=== PATIENT | male | born 1935 | race Caucasian/White ===

== ENCOUNTER 2018-01-09 05:11 | Emergency (ER) | payer OTHER ==
[~2018-01-09 05:11] MED LIST: ATEN-1 PO; ATEN-65 PO; BENZ100C4 PO; CEP500 PO; FISH OIL1 CAP PO; HYDR12.561 PO; HYDR473S4 PO; MULT-820 PO; PRE20 PO; VITA15CR2 TP; [UNRECOGNIZED DRUG - CODE] PO
--- NOTE | 2018-01-09 05:21 | ER Report ---
History and Physical Time Seen By MD: 05:20 Hx. of Stated Complaint: Pt was awoken from sleep at 0100. Pt had kideny stones three weeks ago and reports this pain is simmilar to that episode. Pt denies chest pain or shortness of breath but does state he recently had diarrhea. HPI/ROS CHIEF COMPLAINT: left abdominal and back pain HISTORY OF PRESENT ILLNESS: This is an 83 year old male. He awoke at about 0100 with left abdomen and back pain. Pain is constant and severe. Nothing makes it worse or better. Had a kidney stone and was in the ER in [place], [place]. Left sided kidney stone that passed. The pain is similar, but did not have urge for bowel then like tonight. Having two small bowel movements since awakening, urge to go, but small production, no blood. Had loose bowel. Feels the urge to urinate, but no pain. No fevers or chills. No nausea or vomiting. REVIEW OF SYSTEMS: Constitutional: As above. Cardiovascular: No chest pain. No palpitations. Respiratory: No cough. No shortness of breath. Musculoskeletal: No extremity pain. Skin: No rashes. Allergies: Coded Allergies: Penicillins (Verified Allergy, Mild, REACTION, 08/22/15) Home Meds Active Scripts Ondansetron (ZOFRAN ODT) 4 Mg Tab.rapdis, 4 MG PO Q6H Y for NAUSEA/VOMITING, # 20 TAB.VITALIY 0 Refills Prov:EVERTON OSMAN MD 01/09/18 Ketorolac Tromethamine (KETOROLAC TROMETHAMINE) 10 Mg Tab, 10 MG PO Q6H Y for PAIN, #12 TAB 0 Refills Prov:EVERTON OMSAN MD 01/09/18 Hydrocodone Bit/Acetaminophen (HYDROCODON-ACETAMINOPHEN 5-325) 1 Each Tablet, 1 EACH PO Q4H Y for PAIN, #12 TAB 0 Refills Prov:EVERTON OSMAN MD 01/09/18 Tamsulosin Hcl (FLOMAX) 0.4 Mg Cap.er.24h, 0.4 MG PO QDAY, #14 CAP 0 Refills Prov:EVERTON OSMAN MD 01/09/18 Reported Medications Atenolol (ATENOLOL) 50 Mg Tablet, 0.25 TAB PO QDAY, TAB 01/09/18 Discontinued Reported Medications Atenolol (ATENOLOL) 25 Mg Tablet, 1 TAB PO QDAY, TAB 01/09/18 Atenolol (ATENOLOL) 50 Mg Tablet, 1 TAB PO QDAY, TAB 08/22/15 Flaxseed Oil (Flax Seed) 1,030 Mg Capsule, 1030 MG PO QDAY 07/24/10 Vitamin E ([place]-Isacc E) 15 Gm Cream.gm., 15 GM TP QDAY 07/24/10 [place]-3 Fatty Acids (Fish Oil) 1 Cap Capsule, 1 CAP PO QDAY 07/24/10 Multivitamins (Multivitamin) 1 Tab Tablet, 1 TAB PO 07/24/10 Discontinued Scripts Benzonatate 100 Mg Cap (TESSALON PERLE 100 MG CAP) 100 Mg Capsule, 100 MG PO TID , #15 CAP Prov:KAREN MUKHERJEE Barrera DUMONT 08/22/15 Reviewed Nurses Notes: Yes Hx Smoking: Yes Smoking Status: Former Smoker Hx Substance Use Disorder: No Hx Alcohol Use: Yes (OCC) Constitutional Vital Sign - Last 24 Hours 01/09/18 01/09/18 01/09/18 01/09/18 05:14 05:15 05:17 05:26 Temp 97.5 Pulse 64 Resp 20 B/P (MAP) 167/112 167/112 (130) 181/109 (133) Pulse Ox 97 99 O2 Delivery Room Air 01/09/18 01/09/18 01/09/18 01/09/18 05:27 05:32 05:47 06:00 Pulse 61 63 64 B/P (MAP) 161/92 (115) Pulse Ox 98 98 01/09/18 01/09/18 06:05 06:30 Pulse 60 B/P (MAP) 140/83 (102) Pulse Ox 97 Physical Exam General Appearance: The patient is alert. He is in acute distress because of the pain. Eyes: Pupils are equal, round. No pallor, injection or icterus. ENT: Mucous membranes are moist. Neck: Supple and non tender. Respiratory: Lungs are clear to auscultation. Cardiovascular: Regular rate and rhythm. No murmurs, gallops or rubs. Normal capillary refill. Gastrointestinal: Abdomen is tender, especially on the left side with pain in the left lower back as well. Has guarding but no rebound. Nondistended. No pulsatile masses. Normal active bowel sounds. Has left-sided CVA tenderness. Neurological: Alert and oriented x3. No focal neurologic deficits Skin: Warm and dry. Musculoskeletal: Left lower lumbar area pain, no pain in the midline. DIFFERENTIAL DIAGNOSIS: After history and physical exam, differential diagnosis was considered for abdominal pain including but not limited to diverticulitis, obstruction, colitis, gastroenteritis, kidney stone, AAA and urinary tract infection. Medical Decision Making Data Points Result Diagram: 01/09/1852101/09/18 0522 Laboratory Hematology Test 01/09/18 05:22 Red Blood Count 5.24 M/uL (4.00-5.60) Mean Corpuscular Volume 94.7 fL (80.0-96.0) Mean Corpuscular Hemoglobin 33.8 pg (26.0-33.0) Mean Corpuscular Hemoglobin Concent 35.6 g/dL (32.0-36.0) Red Cell Distribution Width 13.3 % (11.5-14.5) Mean Platelet Volume 8.5 fL (7.2-11.1) Neutrophils (%) (Auto) 43.9 % (39.4-72.5) Lymphocytes (%) (Auto) 37.7 % (17.6-49.6) Monocytes (%) (Auto) 13.9 % (4.1-12.4) Eosinophils (%) (Auto) 2.4 % (0.4-6.7) Basophils (%) (Auto) 2.1 % (0.3-1.4) Nucleated RBC Relative Count (auto) 0.1 /100WBC Neutrophils # (Auto) 2.8 K/uL (2.0-7.4) Lymphocytes # (Auto) 2.4 K/uL (1.3-3.6) Monocytes # (Auto) 0.9 K/uL (0.3-1.0) Eosinophils # (Auto) 0.2 K/uL (0.0-0.5) Basophils # (Auto) 0.1 K/uL (0.0-0.1) Nucleated RBC Absolute Count (auto) 0.00 K/uL Peripheral Blood Smear Yes Y/N Sodium Level 145 mmol/L (137-145) Potassium Level 3.8 mmol/L (3.5-5.0) Chloride Level 107 mmol/L (98-107) Carbon Dioxide Level 27 mmol/L (22-30) Blood Urea Nitrogen 28 mg/dl (9-21) Creatinine 1.10 mg/dl (0.66-1.25) Glomerular Filtration Rate Calc > 60.0 Random Glucose 99 mg/dl (75-110) Lactate 1.7 mmol/L (0.7-2.1) Calcium Level 9.4 mg/dl (8.4-10.2) Total Bilirubin 1.1 mg/dl (0.2-1.3) Aspartate Amino Transf (AST/SGOT) 23 U/L (0-35) Alanine Aminotransferase (ALT/SGPT) 30 U/L (0-56) Alkaline Phosphatase 39 U/L (0-126) C-Reactive Protein < 0.5 mg/dl (<1.0) Total Protein 7.8 g/dl (6.3-8.2) Albumin 4.6 g/dl (3.5-5.0) Amylase Level 108 U/L (0-110) Lipase 366 U/L (23-300) Chemistry Test 01/09/18 05:22 White Blood Count 6.4 k/uL (4.5-11.0) Red Blood Count 5.24 M/uL (4.00-5.60) Hemoglobin 17.7 g/dL (14.0-18.0) Hematocrit 49.7 % (42.0-52.0) Mean Corpuscular Volume 94.7 fL (80.0-96.0) Mean Corpuscular Hemoglobin 33.8 pg (26.0-33.0) Mean Corpuscular Hemoglobin Concent 35.6 g/dL (32.0-36.0) Red Cell Distribution Width 13.3 % (11.5-14.5) Platelet Count 80 K/uL (150-450) Mean Platelet Volume 8.5 fL (7.2-11.1) Neutrophils (%) (Auto) 43.9 % (39.4-72.5) Lymphocytes (%) (Auto) 37.7 % (17.6-49.6) Monocytes (%) (Auto) 13.9 % (4.1-12.4) Eosinophils (%) (Auto) 2.4 % (0.4-6.7) Basophils (%) (Auto) 2.1 % (0.3-1.4) Nucleated RBC Relative Count (auto) 0.1 /100WBC Neutrophils # (Auto) 2.8 K/uL (2.0-7.4) Lymphocytes # (Auto) 2.4 K/uL (1.3-3.6) Monocytes # (Auto) 0.9 K/uL (0.3-1.0) Eosinophils # (Auto) 0.2 K/uL (0.0-0.5) Basophils # (Auto) 0.1 K/uL (0.0-0.1) Nucleated RBC Absolute Count (auto) 0.00 K/uL Peripheral Blood Smear Yes Y/N Glomerular Filtration Rate Calc > 60.0 Lactate 1.7 mmol/L (0.7-2.1) Calcium Level 9.4 mg/dl (8.4-10.2) Total Bilirubin 1.1 mg/dl (0.2-1.3) Aspartate Amino Transf (AST/SGOT) 23 U/L (0-35) Alanine Aminotransferase (ALT/SGPT) 30 U/L (0-56) Alkaline Phosphatase 39 U/L (0-126) C-Reactive Protein < 0.5 mg/dl (<1.0) Total Protein 7.8 g/dl (6.3-8.2) Albumin 4.6 g/dl (3.5-5.0) Amylase Level 108 U/L (0-110) Lipase 366 U/L (23-300) EKG/Imaging Imaging COMPUTED TOMOGRAPHY ABDOMEN AND PELVIS WITH INTRAVENOUS CONTRAST DATE OF EXAM: 01/09/2018 5:33 AM INDICATION: Left-sided abdominal pain. COMPARISON: Abdomen radiographs 08/19/2013. TECHNIQUE: Contrast enhanced abdomen and pelvis CT performed during the injection of 75 ml of Isovue 370. Sagittal and coronal reconstructions were performed. One of the following dose optimization techniques was utilized in the performance of this exam: Automated exposure control; adjustment of the mA and/or kV according to the patient's size; or use of an iterative reconstruction technique. Specific details can be referenced in the facility's radiology CT exam operational policy. FINDINGS: Lung bases: Calcified granuloma in the right lung base. Mild scarring/ atelectasis. Liver and hepatic vasculature: Multiple small hypoattenuating lesions in the left lobe likely represent cysts. No suspicious lesion or acute abnormality. Gallbladder and bile ducts: Normal. Spleen: Calcified granuloma in in the inferior aspect, otherwise normal.. Pancreas: Normal. Adrenals: Normal. Kidneys, ureters and bladder: 6 mm calculus at the left ureterovesicular junction with associated moderate hydronephrosis/hydroureter and delayed nephrogram. Bilateral renal cysts. Urinary bladder is largely decompressed. Retroperitoneum and aorta: Nonaneurysmal aorta with moderate atherosclerosis. No lymphadenopathy. GI tract, mesentery and peritoneum: Nonacute. Normal appendix. A left inguinal hernia contains fat and a small portion of the sigmoid colon. Prostate and seminal vesicles: Normal. Bones and soft tissues: Left inguinal hernia as above. Smaller fat-containing right inguinal hernia. No suspicious lesion. Remote right rib fractures. IMPRESSION: 1. 6 mm calculus at the left ureterovesicular junction with associated moderate hydronephrosis/hydroureter and delayed nephrogram. 2. Left inguinal hernia contains fat and a small portion of the sigmoid colon with no associated acute complication. Report Dictated By: João Andrade MD at 01/09/2018 6:50 AM ED Course/Re-evaluation Clinical Indication for ER IV: Hydration, IV Access ED Course Some improvement with IV Morphine and IV Toradol. Later gave a second dose of Morphine 2mg IV. CT scan shows 6mm stone at UVJ. No other pathology. Reviewed with patient. Decision to Disposition Date: Jan 09, 2018 Decision to Disposition Time: 06:59 Depart Departure Latest Vital Signs Vital Signs Date Time Temp Pulse Resp B/P (MAP) Pulse Ox O2 Delivery O2 Flow Rate FiO2 01/09/18 06:30 140/83 (102) 01/09/18 06:05 60 97 01/09/18 05:14 97.5 20 Room Air Impression: Primary Impression: Kidney stone on left side Condition: Improved Disposition: HOME OR SELF-CARE New Scripts Ondansetron (ZOFRAN ODT) 4 Mg Tab.rapdis 4 MG PO Q6H Y for NAUSEA/VOMITING, #20 TAB.VITALIY 0 Refills Prov: EVERTON OSMAN MD 01/09/18 Ketorolac Tromethamine (KETOROLAC TROMETHAMINE) 10 Mg Tab 10 MG PO Q6H Y for PAIN, #12 TAB 0 Refills Prov: EVERTON OSMAN MD 01/09/18 Hydrocodone Bit/Acetaminophen (HYDROCODON-ACETAMINOPHEN 5-325) 1 Each Tablet 1 EACH PO Q4H Y for PAIN, #12 TAB 0 Refills Prov: EVERTON OSMAN MD 01/09/18 Tamsulosin Hcl (FLOMAX) 0.4 Mg Cap.er.24h 0.4 MG PO QDAY, #14 CAP 0 Refills Prov: EVERTON OSMAN MD 01/09/18 Patient Instructions: Kidney Stones (ED) Additional Instructions: Rest and increase fluid intake. For pain you can use: Toradol 10mg, one every 6 hours as needed for pain. Lortab 5/325, take 1-2 every 4 hours as needed for pain. For Nausea: Zofran 4mg, one every 4-6 hours as needed for nausea. To help the stone to pass and to help decrease swelling and pain in the urinary system after the stone passes, we recommend using Flomax 0.4mg one daily for the next couple of weeks. EVERTON OSMAN MD Jan 09, 2018 05:21
[2018-01-09] MEDS ORDERED: ATEN-65 PO (05:26)
[2018-01-09] MEDS ORDERED: NS(*) 0.9% 1000 ML BAG 1,000 ML IV ONE (05:33)
[2018-01-09] MEDS ORDERED: KETOROLAC 30 MG/ML VIAL IVP ONE (05:35)
[2018-01-09] MEDS ORDERED: ONDANSETRON 4 MG/2 ML VIAL IVP ONE (05:35)
[2018-01-09] MEDS ORDERED: MORPHINE 2 MG/ML SYR IVP ONE ×2 (05:35→06:15)
[2018-01-09 05:41] LABS: PLATELET COUNT, AUTOMATED 80 K/uL (150-450)
[2018-01-09] MEDS ORDERED: IOPAMIDOL 76% 100 ML INFUS BTL 100 ML ONE (06:01)
[2018-01-09] MEDS ORDERED: ATEN-1 PO (06:31)
[2018-01-09 07:00] VITALS: BP 131/83
[2018-01-09] MEDS ORDERED: ONDA4TAB PO (07:00)
[2018-01-09] MEDS ORDERED: TAMS0.4C25 PO (07:00)
[2018-01-09] MEDS ORDERED: LOR5/325 PO (07:00)
[2018-01-09] MEDS ORDERED: KET10 PO (07:00)
--- NOTE | 2018-01-09 07:03 | RADIOLOGY IMAGING REPORT ---
[facility]AC[facility] PATIENT NAME: Ivan Haley : 1935 MR: [id number] V: [id number] EXAM DATE: ORDERING PHYSICIAN: EVERTON OSMAN TECHNOLOGIST: Location: [facility] Patient: Ivan Haley : 1935 Visit/Account:[id number] Date of Sevice: 01/09/2018 COMPUTED TOMOGRAPHY ABDOMEN AND PELVIS WITH INTRAVENOUS CONTRAST DATE OF EXAM: 01/09/2018 5:33 AM INDICATION: Left-sided abdominal pain. COMPARISON: Abdomen radiographs 08/19/2013. TECHNIQUE: Contrast enhanced abdomen and pelvis CT performed during the injection of 75 ml of Isovue 370. Sagittal and coronal reconstructions were performed. One of the following dose optimization te chniques was utilized in the performance of this exam: Automated exposure control; adjustment of the mA and/or kV according to the patient's size; or use of an iterative reconstruction technique. Spec [facility] details can be referenced in the facility's radiology CT exam operational policy. FINDINGS: Lung bases: Calcified granuloma in the right lung base. Mild scarring/atelectasis. Liver and hepatic vasculature: Multiple small hypoattenuating lesions in the left lobe likely repres ent cysts. No suspicious lesion or acute abnormality. Gallbladder and bile ducts: Normal. Spleen: Calcified granuloma in in the inferior aspect, otherwise normal.. Pancreas: Normal. Adrenals: Normal. Kidneys, ureters and bladder: 6 mm calculus at the left ureterovesicular junction with associated mo derate hydronephrosis/hydroureter and delayed nephrogram. Bilateral renal cysts. Urinary bladder is largely decompressed. Retroperitoneum and aorta: Nonaneurysmal aorta with moderate atherosclerosis. No lymphadenopathy. GI tract, mesentery and peritoneum: Nonacute. Normal appendix. A left inguinal hernia contains fat and a small portion of the sigmoid colon. Prostate and seminal vesicles: Normal. Bones and soft tissues: Left inguinal hernia as above. Smaller fat-containing right inguinal hernia . No suspicious lesion. Remote right rib fractures. IMPRESSION: 1. 6 mm calculus at the left ureterovesicular junction with associated moderate hydronephrosis/hydro ureter and delayed nephrogram. 2. Left inguinal hernia contains fat and a small portion of the sigmoid colon with no associated acu te complication. Report Dictated By: João Andrade MD at 01/09/2018 6:50 AM Report E-Signed By: João Andrade MD at 01/09/2018 6:59 AM WSN:[id number]
[2018-01-09] MEDS ORDERED: KETOROLAC TROM 10 MG TAB TH PO ONE (07:05)
[2018-01-09] MEDS ORDERED: ONDANSETRON 4 MG ODT TH SL ONE (07:05)
[2018-01-09] MEDS ORDERED: ACET/HYDROC 5/325MG TH ER ONLY 2 TAB/BOTTLE PO ONE (07:05)
[2018-01-09] MEDS ORDERED: TAMSULOSIN HCL 0.4 MG CAP PO ONE (07:05)
== END 2018-01-09 07:26 | disposition home or self-care (01) ==
LOC: ER 05:13
DX: N20.0 Calculus of kidney (principal); Z87.891 Personal history of nicotine dependence
CPT/HCPCS: 74177; 81001; 82150; 83605; 83690; 85025; 86140; 96374; 96375; 96376; 99284; J1885; J2270; J7030; Q9967; S0119; 82040; 82247; 82310; 82374; 82435; 82565; 82947; 84075; 84132; 84155; 84295; 84450; 84460; 84520

== ENCOUNTER 2018-04-28 09:27 | Emergency (ER) | payer OTHER ==
[~2018-04-28 09:27] MED LIST changes: +KET10 PO; +LOR5/325 PO; +ONDA4TAB PO; +TAMS0.4C25 PO
[2018-04-28] MEDS ORDERED: NS(*) 0.9% 1000 ML BAG 1,000 ML IV ONE (09:55)
[2018-04-28] MEDS ORDERED: ONDANSETRON 4 MG/2 ML VIAL IVP ONE (09:55)
[2018-04-28] MEDS ORDERED: KETOROLAC 30 MG/ML VIAL IVP ONE ×2 (09:55→11:00)
[2018-04-28] MEDS ORDERED: fentaNYL CITR 100 MCG/2 ML AMP IVP ONE (10:30)
--- NOTE | 2018-04-28 11:50 | RADIOLOGY IMAGING REPORT ---
[place] [facility] [place] NAME: Ivan Haley : 1935 MR: [id number] V: [id number] EXAM DATE: ORDERING PHYSICIAN: FAM GAONA TECHNOLOGIST: Location: [facility] Patient: Ivan Haley : 1935 Visit/Account:[id number] Date of Sevice: 04/28/2018 ABDOMEN/PELVIS W/O CONTRAST HISTORY: Left flank pain TECHNIQUE: CT abdomen and pelvis without intravenous contrast. Contiguous axial images of the abdom en and pelvis was performed from the lung bases to the symphysis pubis. One of the following dose optimization techniques was utilized in the performance of this exam: Autom ated exposure control; adjustment of the mA and/or kV according to the patient's size; or use of an i terative reconstruction technique. Specific details can be referenced in the facility's radiology C T exam operational policy. CONTRAST: None. COMPARISON: 01/09/2018 FINDINGS: Visualized lung bases: Patient has a pectus deformity of the anterior chest, a congenital variant Hepatobiliary: Subtle lucency segment 2 of liver is likely a cyst and characterized on prior enhance d CT. Spleen: Negative. Adrenals: Negative. Kidneys/: 6 x 4 mm obstructing left UVJ stone is noted with associated left hydroureter and severe left hydronephrosis. Stone is similar in appearance to the prior obstructing stone. Small calcification lower pole right kidney is noted. Benign renal cortical cysts are noted the large st in the right kidney lower pole measures 5.1 x 4.2 cm. The largest in the left kidney is in the low er pole measures 3.1 cm. Pancreas: Negative. GI: No bowel obstruction or focal inflammation. Vessels/spaces/nodes: Atherosclerotic calcifications noted. Bones/soft tissues: Left inguinal hernia with fat in the defect is noted. Degenerative changes are n oted the spine. Small well-circumscribed lucency in the left iliac bone image 105 measures 8 mm and i s stable from prior examination. I am not provided history malignancy. IMPRESSION: 1. 6 x 4 mm obstructing left UVJ stone with associated left hydroureter and severe left-sided hydron ephrosis. This stone is similar in appearance to the prior examination. 2. Numerous other chronic findings detailed above. Report Dictated By: Marty Rasmussen MD at 04/28/2018 11:38 AM Report E-Signed By: Marty Rasmussen MD at 04/28/2018 11:46 AM WSN:[id number]
[2018-04-28] MEDS ORDERED: TAMSULOSIN HCL 0.4 MG CAP PO ONE (11:55)
[2018-04-28 12:30] VITALS: BP 139/74
--- NOTE | 2018-04-28 12:36 | ER Report ---
History and Physical Time Seen By MD: 09:30 Hx. of Stated Complaint: PATIENT REPORTS THAT HE HAS A KIDNEY STONE. HE REPORTS THAT THIS IS HIS 5TH STONE THIS YEAR HPI/ROS 83 y/o male with 4 previous episodes of kidney stones this year, presents to the ED with severe left sided pelvi pain simialr to his previous stones. No fever/chills. No dysuria. No abdominal pain. Remainder of the 14 system rev: Yes Allergies: Coded Allergies: Penicillins (Verified Allergy, Mild, REACTION, 08/22/15) Home Meds Active Scripts Ondansetron (ZOFRAN ODT) 4 Mg Tab.rapdis, 4 MG PO Q6H PRN for NAUSEA/VOMITING, #20 TAB.VITALIY 0 Refills Prov:EVERTON OSMAN MD 01/09/18 Ketorolac Tromethamine (KETOROLAC TROMETHAMINE) 10 Mg Tab, 10 MG PO Q6H PRN for PAIN, #12 TAB 0 Refills Prov:EVERTON OSMAN MD 01/09/18 Hydrocodone Bit/Acetaminophen (HYDROCODON-ACETAMINOPHEN 5-325) 1 Each Tablet, 1 EACH PO Q4H PRN for PAIN, #12 TAB 0 Refills Prov:EVERTON OSMAN MD 01/09/18 Tamsulosin Hcl (FLOMAX) 0.4 Mg Cap.er.24h, 0.4 MG PO QDAY, #14 CAP 0 Refills Prov:EVERTON OSMAN MD 01/09/18 Reported Medications Atenolol (ATENOLOL) 50 Mg Tablet, 0.25 TAB PO QDAY, TAB 01/09/18 Reviewed Nurses Notes: Yes Old Medical Records Reviewed: Yes Hx Smoking: Yes Smoking Status: Former Smoker Hx Substance Use Disorder: No Hx Alcohol Use: Yes (OCC) Constitutional Vital Sign - Last 24 Hours 04/28/18 04/28/18 04/28/18 04/28/18 09:30 09:34 09:57 10:00 Pulse 57 63 Resp 24 B/P (MAP) 172/102 (125) 152/88 (109) Pulse Ox 94 98 O2 Delivery Room Air 04/28/18 04/28/18 04/28/18 04/28/18 10:27 10:30 10:57 11:00 Pulse 58 64 B/P (MAP) 128/71 (90) 133/73 (93) Pulse Ox 95 97 04/28/18 04/28/18 04/28/18 04/28/18 11:05 11:30 11:35 12:00 Pulse 60 65 B/P (MAP) 122/78 (93) 120/73 (89) Pulse Ox 96 92 04/28/18 04/28/18 04/28/18 04/28/18 12:05 12:30 12:35 12:41 Pulse ? B/P (MAP) 139/74 (95) Physical Exam General Appearance: The patient is alert, has no immediate need for airway protection and no current signs of toxicity. Eyes: Pupils equal and round no injection. Respiratory: Chest is non tender, lungs are clear to auscultation. Cardiac: regular rate and rhythm Gastrointestinal: Abdomen is soft and non tender, no masses, bowel sounds normal. Extremities have full range of motion and are non tender. Skin: No rashes or lesions. DIFFERENTIAL DIAGNOSIS: After history and physical exam differential diagnosis was considered for abdominal pain including but not limited to appendicitis, cholecystitis, gastritis, kidney stone, and urinary tract infection. Medical Decision Making Data Points Laboratory Hematology Test 04/28/18 09:33 Urine Color Yellow Urine Clarity Slightly-cloudy Urine pH 5.0 pH (4.8-9.5) Urine Specific [place] 1.027 Urine Protein 100 mg/dL (NEGATIVE) Urine Glucose (UA) Negative mg/dL (NEGATIVE) Urine Ketones Negative mg/dL (NEGATIVE) Urine Blood Large (NEGATIVE) Urine Nitrite Negative (NEGATIVE) Urine Bilirubin Negative (NEGATIVE) Urine Urobilinogen Negative mg/dL (0.2-1.9) Urine Leukocyte Esterase Negative (NEGATIVE) Urine RBC 299 /HPF (0-2/HPF) Urine WBC 6 /HPF (0-5/HPF) Urine Squamous Epithelial Cells None /LPF (</=FEW) Urine Calcium Oxalate Crystals Few /HPF (NONE) Urine Bacteria Negative /HPF (NONE-FEW) Urine Mucus Few /HPF (NONE-FEW) Urine Yeast (Budding) Few /HPF Chemistry Test 04/28/18 09:33 Urine Color Yellow Urine Clarity Slightly-cloudy Urine pH 5.0 pH (4.8-9.5) Urine Specific [place] 1.027 Urine Protein 100 mg/dL (NEGATIVE) Urine Glucose (UA) Negative mg/dL (NEGATIVE) Urine Ketones Negative mg/dL (NEGATIVE) Urine Blood Large (NEGATIVE) Urine Nitrite Negative (NEGATIVE) Urine Bilirubin Negative (NEGATIVE) Urine Urobilinogen Negative mg/dL (0.2-1.9) Urine Leukocyte Esterase Negative (NEGATIVE) Urine RBC 299 /HPF (0-2/HPF) Urine WBC 6 /HPF (0-5/HPF) Urine Squamous Epithelial Cells None /LPF (</=FEW) Urine Calcium Oxalate Crystals Few /HPF (NONE) Urine Bacteria Negative /HPF (NONE-FEW) Urine Mucus Few /HPF (NONE-FEW) Urine Yeast (Budding) Few /HPF Urinalysis Test 04/28/18 09:33 Urine Color Yellow Urine Clarity Slightly-cloudy Urine pH 5.0 pH (4.8-9.5) Urine Specific [place] 1.027 Urine Protein 100 mg/dL (NEGATIVE) Urine Glucose (UA) Negative mg/dL (NEGATIVE) Urine Ketones Negative mg/dL (NEGATIVE) Urine Blood Large (NEGATIVE) Urine Nitrite Negative (NEGATIVE) Urine Bilirubin Negative (NEGATIVE) Urine Urobilinogen Negative mg/dL (0.2-1.9) Urine Leukocyte Esterase Negative (NEGATIVE) Urine RBC 299 /HPF (0-2/HPF) Urine WBC 6 /HPF (0-5/HPF) Urine Squamous Epithelial Cells None /LPF (</=FEW) Urine Calcium Oxalate Crystals Few /HPF (NONE) Urine Bacteria Negative /HPF (NONE-FEW) Urine Mucus Few /HPF (NONE-FEW) Urine Yeast (Budding) Few /HPF ED Course/Re-evaluation ED Course CT scan consistent with a 6 mm left-sided stone at the UVJ. Patient does not want narcotic pain medicine. He has received 2 doses of Toradol as well as Flomax and Zofran. His pain is improved. No Evidence of infection. He will try to catch the stone with a strainer and follow-up with a urologist. Decision to Disposition Date: Apr 28, 2018 Decision to Disposition Time: 12:30 Depart Departure Latest Vital Signs Vital Signs Date Time Temp Pulse Resp B/P (MAP) Pulse Ox O2 Delivery O2 Flow Rate FiO2 04/28/18 12:41 ??? 04/28/18 12:30 139/74 (95) 04/28/18 11:35 92 04/28/18 09:30 24 Room Air Impression: Primary Impression: Kidney stone on left side Condition: Improved Disposition: HOME OR SELF-CARE Referrals: JANA AUGUSTE MD Departure Forms: Medications Reconciliation, Patient Portal Information, ER Transition Record Patient Instructions: Kidney Stones (DC) FAM GAONA MD Apr 28, 2018 12:36
[2018-04-28] MEDS ORDERED: KETOROLAC TROM 10 MG TAB TH PO ONE (12:40)
== END 2018-04-28 12:44 | disposition home or self-care (01) ==
LOC: ER 10:18
DX: N13.2 Hydronephrosis with renal and ureteral calculous obstruction (principal); N13.4 Hydroureter
CPT/HCPCS: 74176; 81001; 96361; 96374; 96375; 96376; 99284; J1885; J2405; J7030

== ENCOUNTER 2018-08-25 01:01 | Observation (INO) | payer OTHER ==
[~2018-08-25] VITALS: Ht 172.7 cm; Wt 77.6 kg
[2018-08-25] VITALS (14 sets, daily range): BP systolic 125–174; BP diastolic 71–92
[~2018-08-25 01:01] MED LIST changes: +VIT1CAPS9 PO
[2018-08-25] MEDS ORDERED: LEVOFLOXACIN/D5W*500 MG/100 ML 100 ML IVPB ONE (06:00)
[2018-08-25] MEDS ORDERED: NORMOSOL R SOLN(*) 1000 ML BAG 1,000 ML IV PRN ×2 (06:00→11:15)
[2018-08-25] MEDS ORDERED: fentaNYL CITR 100 MCG/2 ML AMP ONE ×2 (06:58→09:07)
[2018-08-25] MEDS ORDERED: ETOMIDATE 20 MG/10 ML VIAL ONE (06:58)
[2018-08-25] MEDS ORDERED: PROPOFOL EMUL(*) 10MG/ML 20 ML 20 ML ONE (06:58)
[2018-08-25] MEDS ORDERED: ONDANSETRON 4 MG/2 ML VIAL ONE (06:58)
[2018-08-25] MEDS ORDERED: LIDOCAINE MPF 1% 5 ML VIAL ONE (06:58)
[2018-08-25] MEDS ORDERED: KETAMINE HCL-NS 50 MG/5 ML SYR ONE (06:58)
[2018-08-25] MEDS ORDERED: LIDOCAINE 2% IV 100 MG/5ML SYR ONE (07:00)
[2018-08-25 07:52] LABS: PLATELET COUNT, AUTOMATED 58 K/uL (150-450)
[2018-08-25] MEDS ORDERED: IOPAMIDOL-200 50 ML VIAL IS ONE (08:12)
[2018-08-25] MEDS ORDERED: BELLADONNA ALK/OPIUM 60MG SUPP PR ONE (08:12)
[2018-08-25] MEDS ORDERED: HYDROmorphone HCL 2 MG/ML SDV IVP PRN (09:10)
[2018-08-25] MEDS ORDERED: APAP/HYDROCODONE 325/5 TAB PO PRN (09:10)
[2018-08-25] MEDS ORDERED: NALOXONE HCL 0.4 MG/ML VIAL IVP PRN (09:10)
[2018-08-25] MEDS ORDERED: ONDANSETRON 4 MG/2 ML VIAL IVP PRN (09:10)
[2018-08-25] MEDS ORDERED: ACETAMINOPHEN 325 MG TAB PO PRN (09:10)
[2018-08-25] MEDS ORDERED: TAMSULOSIN HCL 0.4 MG CAP PO PRN (09:15)
--- NOTE | 2018-08-25 09:32 | OPERATIVE REPORT 1 ---
EVENT DATE: August 25, 2018 SURGEON: Clinton Dumont MD ANESTHESIOLOGIST: Aroldo Estrada MD ANESTHESIA: General. INFORMATION TECHNOLOGY COORDINATOR: None. PREOPERATIVE DIAGNOSIS Distal left ureteral calculus. POSTOPERATIVE DIAGNOSIS Distal left ureteral calculus. PROCEDURE PERFORMED Left ureteroscopic laser lithotripsy with stone extraction and stent placement. DESCRIPTION OF PROCEDURE The patient was brought to the operating room and after the adequate induction of general anesthesia, he was placed in the relaxed dorsal lithotomy position. The genitalia were scrubbed, prepped and draped in a sterile fashion and the bladder examined with a rigid cystoscope. There was some prostatic hypertrophy observed but no intravesical abnormalities noted. I was able to place a sensor wire into the left ureteral orifice and position it in the left renal pelvis. I had to dilate the distal ureter with the 12-Kyrgyz ureteral dilation system and after this the scope could be passed over the wire and into the distal ureter, where the stone was visualized. I used a 200 micron laser fiber to thoroughly fragment the stone into innumerable pieces. Several of the larger pieces were withdrawn with the Galileo basket and sent for stone analysis. Once accomplished, I was able to place a 24 cm 6-Kyr[place]z double-J stent over the wire and its position was confirmed cystoscopically and fluoroscopically. His bladder was emptied with a Aguilar catheter. A B and O suppository was administered. He was aroused from anesthesia and then transported to PACU in stable condition. [facility]
[2018-08-25] MEDS ORDERED: PROMETHAZINE 25 MG/ML 1 ML AMP ONE (09:42)
--- NOTE | 2018-08-25 10:04 | RADIOLOGY IMAGING REPORT ---
FAC[place] [facility] [place] NAME: Ivan Haley : 1935 MR: [id number] V: [id number] EXAM DATE: ORDERING PHYSICIAN: JANA AUGUSTE TECHNOLOGIST: Location: [facility] [place] Patient: Ivan Haley : 1935 Visit/Account:[id number] Date of Sevice: 08/25/2018 Exam type: C-ARM FLUORO 1 HR History: HEMATURIA Comparison: CT abdomen pelvis April 28, 2018. Findings: Two intraoperative C arm spot views over the abdomen and pelvis were submitted. The fluoroscopy time was four seconds. The fluoroscopy dose was 2.28 mGY. Images demonstrate cystoscope projecting over the lower pelvis. Final image demonstrates a left ureteral stent. The proximal pigtail projects ov er the upper pole the left kidney IMPRESSION: 1. As above Report Dictated By: Alecia Zarco MD at 08/25/2018 9:57 AM Report E-Signed By: Alecia Zarco MD at 08/25/2018 9:59 AM WSN:[id number]
[2018-08-25] MEDS ORDERED: BELLADONNA ALK/OPIUM 60MG SUPP PR PRN (10:05)
[2018-08-25] MEDS: NS(*) 0.9% 1000 ML BAG 1,000 ML IV PRN ×2 (10:41→18:31)
[2018-08-25] MEDS ORDERED: MIDAZOLAM 2 MG/2 ML VIAL IVP PRN (11:15)
[2018-08-25] MEDS ORDERED: FAMOTIDINE 20 MG TAB PO ONE (11:15)
[2018-08-25] MEDS ORDERED: LIDOCAINE/SOD BICARB 8.4% SYR ID ONE (11:15)
[2018-08-25] MEDS: FAMOTIDINE 20 MG TAB PO SCH (20:17)
[2018-08-25] MEDS: DOCUSATE SODIUM 100 MG CAP PO SCH (20:17)
[2018-08-25] MEDS: BETA-CAROTENE(A) & E/MIN TAB PO SCH (20:17)
[2018-08-26 00:41] VITALS: BP 115/61
[2018-08-26] MEDS: NS(*) 0.9% 1000 ML BAG 1,000 ML IV PRN (02:48)
[2018-08-26 07:26] VITALS: BP 128/69
[2018-08-26 08:50] VITALS: Ht 172.7 cm; Wt 77.6 kg
[2018-08-26] MEDS: DOCUSATE SODIUM 100 MG CAP PO SCH (08:57)
[2018-08-26] MEDS: FAMOTIDINE 20 MG TAB PO SCH (08:57)
[2018-08-26] MEDS: BETA-CAROTENE(A) & E/MIN TAB PO SCH (08:58)
[2018-08-26] MEDS ORDERED: ATENOLOL 25 MG TAB PO SCH (09:00)
--- NOTE | 2018-08-26 09:00 | Urology Discharge Summary ---
Discharge Summary Reason for Hosp/Final Diag: (1) Kidney stone on left side Status: Resolved Departure Weight (Pounds): 171 Result Diagram: 08/25/18 0732 Condition: Improved Discharge: Home Discharge Instructions Home Meds Reported Medications Tamsulosin Hcl (FLOMAX) 0.4 Mg Cap.er.24h, 0.4 MG PO DAILY PRN for KIDNEY STONE PAIN, CAP 08/17/18 Vit C/E/Zn/Coppr/Lutein/Zeaxan (Preservision Areds 2 Softgel) 1 Each Capsule, 1 CAP PO BID 08/17/18 Discontinued Reported Medications Atenolol (ATENOLOL) 50 Mg Tablet, 12.5 MG PO QDAY, TAB 01/09/18 Diet: Regular Activity: As Tolerated Venous Thromboembolism Antithrombotics Is Pt On Any Antithrombotics?: JANA Berman MD Aug 26, 2018 09:00
--- NOTE | 2018-08-26 09:01 | Urology Progress Note ---
Subjective Patient Complains of: Neurological: No: Syncope, Confusion, Weakness, Dizziness, Slurred Speech, Other Gastrointestinal: No Nausea, No Vomiting, No Flatus, No Bowel Movement, No Other Physical Exam Vital Signs Date Time Temp Pulse Resp B/P (MAP) Pulse Ox O2 Delivery O2 Flow Rate FiO2 08/26/18 07:31 92 08/26/18 07:26 98.2 64 18 128/69 (88) Room Air 08/26/18 00:41 1.0 Intake and Output 08/26/18 07:00 Intake Total 3734 ml Output Total 1450 ml Balance 2284 ml Intake Oral 400 ml IV Total 3334 ml Output Urine Total 1450 ml General Appearance: Alert, Awake, No Acute Distress Eyes: PERRLA Cardiovascular: Regular Rate and Rhythm Respiratory: No Respiratory Distress GI: Soft and Non-Tender Result Diagram: 08/25/18 0732 Assessment and Plan Problems: (1) Kidney stone on left side Status: Resolved Condition Patient was found to be thrombocytopenic and had fairly bloody urine in the PACU . He was admitted overnight and this morning his urine has cleared. The plan is to discharge him home this morning have him follow-up in 1-2 weeks for cystoscopy and stent removal in clinic. Exam Sepsis Risk: No Definite Risk JANA AUGUSTE MD Aug 26, 2018 09:01
== END 2018-08-26 10:26 | disposition home or self-care (01) ==
LOC: OR 01:01 → MED 10:13
PROVIDERS: ADMIT Urology; ATTEND Urology
DX: N20.1 Calculus of ureter (principal)
CPT/HCPCS: 36415; 52353; 76000; 85025; C2617; G0378; J1956; J2001; J2405; J2550; J2704; J3010; J3490; J7030; Q9966